=== PATIENT | male | born 1970 | race African-American/Black ===

== ENCOUNTER 2016-10-21 19:51 | Emergency (ER) | payer BC ==
[2016-10-21] MEDS ORDERED: AMOX TR/POTASSIUM CLAVULANATE 875 MG TABLET PO ONE (21:00)
[2016-10-21] MEDS ORDERED: BENZONATATE 100 MG CAPSULE PO ONE ×2 (21:01→21:03)
[2016-10-21] MEDS ORDERED: AMOX TR/POTASSIUM CLAVULANATE 875 MG TABLET ONE (21:03)
--- NOTE | 2016-10-21 21:08 | ERNOTE ---
Time Seen by Provider: 10/21/16 20:51 Stated Complaint: CHEST CONGESTION, SINUS PRESSURE Presenting Symptoms:: cough Source: patient Exam Limitations: no limitations Immunizations: IMMUNIZATION HX Immunizations Up to Date Yes History of Influenza Vaccine Yes Allergies/Adverse Reactions: Allergies No Known Allergies Allergy (Unverified 10/21/16 20:00) Home Medications: HOME MEDICATIONS Amox Tr/Potassium Clavulanate [Augmentin 875-125 Tablet] 875 mg PO Q12H #20 tab 10/21/16 [Last Taken Unknown] Benzonatate [Tessalon Perle] 100 mg PO QID #20 capsule 10/21/16 [Last Taken Unknown] Lisinopril [Zestril] 10 mg PO DAILY 10/21/16 [Last Taken Unknown] - History of Present Ilness Narrative: cough and sinus congestion for 3 weeks. Having fever and fatigue Timing: getting worse Severity: moderate Review of Systems - Review of Systems Constitutional: Present: See HPI, recent illness, fever EYE: Present: no symptoms reported ENT: Present: See HPI. Absent: ear pain Respiratory: Present: See HPI, shortness of breath, cough Cardiology: Present: no symptoms reported Gastrointestinal/Abdominal: Present: no symptoms reported Genitourinary: Present: no symptoms reported Musculoskeletal: Present: no symptoms reported Skin: Present: no symptoms reported Neurological: Present: no symptoms reported Endocrine: Present: no symptoms reported Hematologic/Lymphatic: Present: no symptoms reported Psych: Present: no symptoms reported - Patient's Past Medical History Patient History - Medical: No pertinent hx, Anxiety Patient History - Cardiac/Respiratory: Hypertension Patient History - Cancer: No Hx of Cancer Patient History - Surgical Procedures: No surgical history Patient History - Other: None - Social History Living Situations: home Psych History: Hx of Anxiety Smoking Status: Current some day smoker Have you smoked in the past 12 months: - smoke cigars once in a wh Alcohol Use: none Drug Use: none - Immunizations Immunizations Up to Date: Yes History of Influenza Vaccine: Yes Physical Exam - Physical Exam General Appearance: Present: wd/wn, alert, no apparent distress Ears, Nose, Throat: Present: nasal congestion, sinus pain/drainage - erythematous nasal mucosa with mucoid discharge Respiratory: Present: no respiratory distress, rhonchi, wheezing Extremity Exam: Present: normal inspection, non-tender, no edema, normal range of motion Neurological Exam: Present: alert, oriented, normal mood/affect, no motor/ sensory deficits Skin Exam: Present: normal color, warm/dry Lymphatic Exam: Present: no adenopathy ED Progress - Vital Signs Patient's Vital Signs:: I have reviewed the patient's vital signs. Vital Signs: Vital Signs 10/21/16 19:55 Temperature 36.5 C Pulse Rate 106 H Respiratory 20 Rate Blood Pressure 147/62 O2 Sat by Pulse 100 Oximetry - Progress/Reassessment Chief Complaint: Upper Respiratory Symptoms Departure - Departure Clinical Impression: Sinusitis Qualifiers: Sinusitis location: pansinusitis Chronicity: acute Recurrence: not specified as recurrent Qualified Code(s): J01.40 - Acute pansinusitis, unspecified Disposition: Home self-care Condition: Good Instructions: Sinusitis, Adult, [id number] Additional Instructions: Salt water sinus rinse and mucinex can also be purchased over the counter and may help as well. Take antibiotics until gone Referrals: Tita Anderson ARNP [Primary Care Provider] - Prescriptions: Amox Tr/Potassium Clavulanate [Augmentin 875-125 Tablet] 875 mg PO Q12H #20 tab Benzonatate [Tessalon Perle] 100 mg PO QID #20 capsule
[2016-10-21 21:14] VITALS: BP 140/76
== END 2016-10-21 21:13 | disposition home or self-care (01) ==
LOC: ER 19:51
DX: J01.40 Acute pansinusitis, unspecified (principal); Z72.0 Tobacco use; I10 Essential (primary) hypertension